=== PATIENT | female | born 1970 | race Caucasian/White ===

== ENCOUNTER 2021-01-17 09:18 | Emergency (ER) | payer OTHER ==
[2021-01-17] MEDS ORDERED: PREDNISONE 20MG20 MG PO (10:16)
[2021-01-17] MEDS ORDERED: BACTRIM DS TAB1 EACH PO (10:16)
== END 2021-01-17 10:40 | disposition home or self-care (01) ==
LOC: FER 09:18
DX: L23.7 Allergic contact dermatitis due to plants, except food (principal); F17.210 Nicotine dependence, cigarettes, uncomplicated
CPT/HCPCS: 99282; J1040

== ENCOUNTER 2022-01-05 05:28 | Emergency (ER) | payer OTHER ==
[~2022-01-05 05:28] MED LIST: BACTRIM DS TAB1 EACH PO; PREDNISONE 20MG20 MG PO
[2022-01-05] MEDS ORDERED: TRIAMCINOLONE 080 GM TOP (05:56)
[2022-01-05] MEDS ORDERED: CEPHALEXIN500 M1 PO (05:56)
[2022-01-05] MEDS ORDERED: PREDNISONE 20MG20 MG PO (05:56)
[2022-01-05] MEDS ORDERED: ZYRTEC10 MG PO (05:58)
== END 2022-01-05 06:11 | disposition home or self-care (01) ==
LOC: FER 05:28
DX: L50.0 Allergic urticaria (principal); F17.210 Nicotine dependence, cigarettes, uncomplicated; Z28.310 Unvaccinated for COVID-19
CPT/HCPCS: J1100

== ENCOUNTER 2022-02-22 12:10 | Emergency (ER) | payer OTHER ==
[~2022-02-22 12:10] MED LIST changes: +CEPHALEXIN500 M1 PO; +TRIAMCINOLONE 080 GM TOP; +ZYRTEC10 MG PO
[2022-02-22] MEDS ORDERED: AMOX TR-K CLV1 EAC4 PO (13:08)
== END 2022-02-22 14:03 | disposition home or self-care (01) ==
LOC: FER 12:10
DX: S81.851A Open bite, right lower leg, initial encounter (principal); F17.210 Nicotine dependence, cigarettes, uncomplicated; W54.0XXA Bitten by dog, initial encounter; Z28.310 Unvaccinated for COVID-19
CPT/HCPCS: 99283